=== PATIENT | male | born 1955 | race Caucasian/White ===

== ENCOUNTER 2019-12-25 11:07 | Outpatient (CLI) | payer OTHER, SELFPAY ==
--- NOTE | 2019-12-25 11:10 | ECG_ITS ---
Measurements Intervals [place] Rate: 53 P: 31 ND: 189 QRS: 2 QRSD: 106 T: 7 QT: 395 QTc: 373 Interpretive Statements SINUS BRADYCARDIA VOLTAGE CRITERIA FOR LVH BORDERLINE ECG Electronically Signed On 12-25-2019 12:15:54 SEARCH STRATEGIST by Navin Orozco D.O.
== END 2019-12-25 11:08 | disposition home or self-care (01) ==
LOC: ANHSURGERY 11:10
PROVIDERS: PCP Family Medicine; Visit Provider Urology
DX: I10 Essential (primary) hypertension (principal)
CPT/HCPCS: 93005

== ENCOUNTER 2020-01-03 00:45 | Day surgery (SDC) | payer OTHER, SELFPAY ==
[2019-12-20 11:04] VITALS: BMI 24.4
--- NOTE | 2019-12-31 17:53 | PM.HPGS ---
History of Present Illness History of Present Illness Consent: Risks, benefits, and alternatives have been discussed and questions answered. Patient agrees to proceed with procedure. Chief complaint: Bladder Tumor Narrative: Alex Cortes is a 64 year old male recently underwent evaluation for gross hematuria. CT-abd/pelvis revealed normal upper urinary tract but cystoscopy showed 2 papillary bladder tumors in posterior bladder wall. Review of Systems Constitutional: Constitutional: Denies chills, Denies fatigue, Denies fever(s) and Denies headache(s) Eyes: Eyes: Denies blurry vision ENT: Denies vertigo, Denies dizziness, Denies headache(s) and Denies sore throat Cardiovascular: Cardiovascular: Denies chest pain, Denies syncope, Denies lightheadedness, Denies palpitations, Denies dyspnea and Denies dyspnea on exertion Respiratory: Respiratory: Denies hemoptysis, Denies dyspnea and Denies dyspnea on exertion Gastrointestinal: Gastrointestinal: Denies melena, Denies bloating, Denies hematochezia, Denies change in bowel habits, Denies change in stool character, Denies constipation, Denies diarrhea and Denies vomiting Genitourinary: Genitourinary: Denies hematuria, Denies dysuria, Denies testicular pain, Denies urinary frequency, Denies urinary hesitancy and Denies urinary urgency Integumentary/Breasts: Skin/Breast: Denies pruritus, Denies lesions and Denies rash Neurologic: Denies confusion, Denies vertigo, Denies dizziness, Denies syncope and Denies headache(s) Psychiatric: Psychiatric: Denies anxiety, Denies change in appetite and Denies confusion Endocrine: Endocrine: Denies fatigue and Denies palpitations PMFSH Past Medical History Medical History Colon cancer screening Dyslipidemia Environmental allergies Essential (primary) hypertension Idiopathic chronic gout, unspecified site, without tophus (tophi) Osteoarthritis Family History Family History Mother Patient's mother is Family history of malignant neoplasm of ovary Father Family history of dementia Social History Social History Smoking status: Never smoker Second hand tobacco smoke exposure: No Alcohol intake: current Meds Home Medications and Allergies Home Medications Medication Instructions Recorded Confirmed Type allopurinol 100 mg tablet 150 mg PO DAILY 10/01/19 12/20/19 History metoprolol succinate 100 mg 100 mg PO DAILY 10/01/19 12/20/19 History tablet,extended release 24 hr loratadine [Claritin] 10 mg PO DAILY 11/26/19 12/20/19 History irbesartan 300 mg tablet 300 mg PO DAILY #90 tablet 12/20/19 12/20/19 Rx Allergies Allergy/AdvReac Type Severity Reaction Status Date / Time No Known Allergies Verified 12/20/19 11:05 Exam Const: General: healthy appearing, comfortable, no acute distress and well developed; No confusion Nutritional Appearance: well nourished Orientation/consciousness: patient oriented x3 and No confusion HENMT: Head: normocephalic and atraumatic Ears: external ears normal Face and sinus: normal facial exam Mouth: Yes lip normal Teeth and gingiva: dentition normal Eyes: General: appearance normal, both eyes and all related structures Alignment and Position: alignment normal Eyelids: eyelids normal Cornea: corneas normal Pupils: Equal, round and reactive pupils present EOM: EOMs intact bilaterally Neck: Neck: normal visual inspection, full ROM and no JVD Chest: Chest palpation & inspection: normal inspection of the chest Resp: Effort & Inspection: normal respiratory effort and no use of accessory muscles Auscultation: clear to auscultation bilaterally Cardio: Jugular venous distension: no JVD Rate: regular rate Rhythm: regular rhythm GI: Inspection: normal to inspection GI Palp: No abdominal tendernes
--- NOTE | 2020-01-03 07:22 | WPDHPUPDATE1 ---
History and Physical Update Update Date/Time: 01/03/20 07:22 History and Physical has been reviewed, including an updated exam of the patient. There are NO changes in the patient's condition. Risks, benefits, and alternatives have been discussed and questions answered. Patient agrees to proceed with procedure.
[2020-01-03 12:18] VITALS: BP 146/95; PULSE 63; RESP 14; TEMP 36.3; O2SAT 97; BMI 25.1
--- NOTE | 2020-01-03 12:22 | WPDANESEPPF ---
Anes - Initial Pre Proc Eval Procedure: Operation Date: 01/03/20 13:00 Proposed Procedures p Trans Urethral Resection Bladder Tumor - Wes Goetz MD Date/Time: 01/03/20 12:22 Surgeon: Wes Goetz MD Pre Op Diagnosis: Bladder Tumor Patient Data Age: 64 Gender: M Height: 1.8 m Weight: 79.38 kg Allergies Allergy/AdvReac Type Severity Reaction Status Date / Time No Known Allergies Verified 12/20/19 11:05 Home Medications Medication Instructions Recorded Confirmed Type allopurinol 100 mg tablet 150 mg PO DAILY 10/01/19 12/20/19 History metoprolol succinate 100 mg 100 mg PO DAILY 10/01/19 12/20/19 History tablet,extended release 24 hr loratadine [Claritin] 10 mg PO DAILY 11/26/19 12/20/19 History irbesartan 300 mg tablet 300 mg PO DAILY #90 tablet 12/20/19 12/20/19 Rx ECG: Date of Service: 12/25/19 Procedure(s): CA 12 lead EKG Accession Number(s): [id number] cc: ~ Measurements Intervals [place] Rate: 53 P: 31 [place]: 189 QRS: 2 QRSD: 106 T: 7 QT: 395 QTc: 373 Interpretive Statements SINUS BRADYCARDIA VOLTAGE CRITERIA FOR LVH BORDERLINE ECG Electronically Signed On 12-25-2019 12:15:54 TEAM PRIMARY CARE PHYSICIAN by Navin Orozco D.O. Dictated By: Navin Orozco DO 12/25/19 1133 Patient hx anesthesia problems: none Family hx anesthesia problems: none PMFSH Past Medical History Medical History Colon cancer screening Dyslipidemia Environmental allergies Essential (primary) hypertension Idiopathic chronic gout, unspecified site, without tophus (tophi) Osteoarthritis Family History Family History Mother Patient's mother is Family history of malignant neoplasm of ovary Father Family history of dementia Social History Social History Smoking status: Never smoker Second hand tobacco smoke exposure: No Alcohol intake: current Anes - Eval Final PreProcedure Day of Procedure 02/27/20 12:22 Patient weight: overweight Heart: regular rate and rhythm Lungs: clear to auscultation and normal air movement Airway: Mallampati scale class II Neurological: alert and oriented Last oral intake: >/= 8 hours ASA classification: II Emergent: no Anesthetic plan: proceed Anesthesia type and monitoring: general LMA Informed Consent: The patient's anesthetic plan and its attendant risks and benefits were discussed with the patient/family/POA. Questions were solicited and answers provided to the satisfaction of the patient/family/POA.
[2020-01-03] MEDS: LACTATED RINGERS 1,000 ML 30 ML IV CONT (12:50)
[2020-01-03] MEDS: ceFAZolin 2 GM/D5W 50 ML 2 GM/50 ML BAG IVPB (13:35)
[2020-01-03] MEDS: LIDOCAINE HCL 2% GEL UROJET 10 ML PKG MUCOUS MEM (13:54)
[2020-01-03] MEDS: KETOROLAC 30 MG/ML VIAL (*BKC) IV PUSH (14:00)
[2020-01-03 14:06] VITALS: BP 146/92; PULSE 66; RESP 14; O2SAT 98
--- NOTE | 2020-01-03 14:13 | PM.PROC ---
Procedure Note - Detailed Date of procedure: 01/03/20 Pre-op diagnosis: Bladder Tumor Post-op diagnosis: same Procedure performed: The patient was brought to the operative suite where he is prepped and draped in a routine sterile fashion while in the dorsal lithotomy position. This is done after the uneventful administration of systemic sedation. 2% Xylocaine jelly is introduced intraurethrally and allowed to stand for an appropriate period of time. A 24F resectoscope sheath was placed in the bladder and the bladder is circumferentially inspected carefully. 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 This area is resected in its entirety with an attempt made to include detrusor muscle for pathological evaluation of invasion. The base and periphery of this resected side is cauterized with a loop electrode. The bladder is emptied and the resectoscope was removed. The patient is taken to the recovery room having tolerated this procedure well. Anesthesia: MAC Surgeon: Wes Goetz MD Estimated blood loss (mL): 0 Drains: No Packing: No (Bladder tumor) Pathology: yes (Bladder tumor) Complications: No immediate complications Condition: stable Disposition: PACU
[2020-01-03 14:30] VITALS: BP 140/88; PULSE 68
[2020-01-03 14:45] VITALS: BP 144/75; PULSE 72
== END 2020-01-03 14:50 | disposition home or self-care (01) ==
PROVIDERS: PCP Family Medicine; Visit Provider Urology
PROC: 0TBB8ZZ Excision of Bladder, Via Natural or Artificial Opening Endoscopic (ICD-10-PCS; CPT 52235; principal; 2020-01-03 13:00)
DX: C67.4 Malignant neoplasm of posterior wall of bladder (principal); I10 Essential (primary) hypertension; E78.5 Hyperlipidemia, unspecified; M1A.00X0 Idiopathic chronic gout, unspecified site, without tophus (tophi); M19.90 Unspecified osteoarthritis, unspecified site
CPT/HCPCS: 52235; 88305; 88307; A9270; J0690; J1100; J1885; J2250; J2405; J2704; J3010; J7120

== ENCOUNTER 2020-01-04 04:06 | Observation (INO) | payer OTHER, SELFPAY ==
[2020-01-04 04:10] VITALS: BP 164/76; PULSE 78; RESP 16; TEMP 36.6; O2SAT 100
--- NOTE | 2020-01-04 04:28 | ED.MALEGU ---
HPI - Male Genitourinary General Chief complaint: Urogenital-Male Stated complaint: cant urinate Time Seen by Provider: 01/04/20 04:20 Source: patient Mode of arrival: ambulatory Limitations: no limitations History of Present Illness HPI Narrative: Patient is a 64-year-old male who presents to the emergency department with complaint of hematuria and unable to urinate. Patient underwent transurethral resection of 3 bladder tumors yesterday. Patient states postoperatively he was able to urinate without difficulty. Patient reports yesterday evening developing hematuria and was passing some clots. Patient states he woke up this morning to urinate and was unable to urinate. Patient reports significant discomfort in the area of the bladder. Patient states he is otherwise been doing well postoperatively. Complaint: other (Hematuria, unable to urinate) Duration: constant Location: abdomen (bladder) Severity scale (1-10): 6 Relieving factors: none Exacerbating factors: none Context: recent surgery Associated symptoms: Reports urinary retention and blood in urine Related Data Home Medications Medication Instructions Recorded Confirmed allopurinol 100 mg tablet 150 mg PO DAILY 10/01/19 01/03/20 metoprolol succinate 100 mg 100 mg PO DAILY 10/01/19 01/03/20 tablet,extended release 24 hr loratadine [Claritin] 10 mg PO DAILY 11/26/19 01/03/20 Allergies Allergy/AdvReac Type Severity Reaction Status Date / Time No Known Allergies Verified 01/04/20 05:25 Review of Systems Review of Systems: All systems reviewed & are unremarkable except as noted in HPI and below PMFSH Past Medical History Medical History (Updated 01/04/20 @ 06:14 by Riri Jones MD) Colon cancer screening Dyslipidemia Environmental allergies Essential (primary) hypertension Idiopathic chronic gout, unspecified site, without tophus (tophi) Osteoarthritis Surgical History Surgical History History of chest tube placement History of colonoscopy Social History Social History Smoking status: Never smoker Second hand tobacco smoke exposure: No Alcohol intake: current Gender identity (if verbalized by the patient): Male Exam Const: General: cooperative, no acute distress and alert Nutritional Appearance: well nourished Orientation/consciousness: patient oriented x3 Limitations: no limitations HENMT: Mouth: Yes lip normal and Yes moist mucous membranes Resp: Effort & Inspection: normal respiratory effort Auscultation: clear to auscultation bilaterally Cardio: Rate: regular rate Rhythm: regular rhythm GI: GI Palp: Yes Soft to palpation and Yes Tenderness to palpation present (GI) (Suprapubic) Auscultation: normal bowel sounds : General: Yes Bladder palpation abnormal distended and tender Skin: General skin exam: normal color Neuro: General: patient oriented x3 Cognition (Neuro): normal cognition Speech: normal speech Extrem: General: normal to inspection, full ROM and no clubbing, cyanosis or edema Psych: Mental Status: mental status grossly normal Affect: normal affect Attitude: cooperative Course Course Emergency Course: Patient presents with urinary retention after having had hematuria with clots last night status post bladder tumor resection yesterday. Three-way Srivastava catheter placed and CBI initiated. Patient with grossly bloody urine present that is still red in color with CBI. Patient will be admitted for further CBI and urology evaluation. Consultations Consultation #1: Case discussed with Dr. Laguna, urologist on-call for Dr. Goetz, who recommended admission to urology service for further care. Date: 01/04/20 Time: 06:05 Vital Signs Vital signs: Vital Signs Temperature 97.8 F 01/04/20 04:10 Pulse Rate 78 01/04/20 04:10 Respiratory Rate 16 01/04/20 04:10 Blood Pressure 164/
[2020-01-04 04:47] LABS: Basophils Percent Auto 0.3 % (0.2-1.2); Eosinophils Percent Auto 0.3 % (0-4.4); Hematocrit 38.7 % (42.0-52.0); Hemoglobin 13.4 g/dL (14.0-18.0); Immature Granulocyte Absolute 0.02 K/mm3 (0.00-0.031); Immature Granulocyte Percent A 0.3 % (0-0.5); Lymphocytes Absolute Auto 0.69 K/mm3 (0.9-3.2); Lymphocytes Percent Auto 10.7 % (18.3-44.2); Mean Corpuscular HGB Conc 34.6 g/dl (32-36); Mean Corpuscular Hemoglobin 30.6 pg (26-34); Mean Corpuscular Volume 88.4 fl (80-100); Mean Platelet Volume 9.4 fl (7.4-10.4); Monocytes Absolute Auto 0.6 K/mm3 (0.1-0.6); Neutrophils Absolute Auto 5.1 K/mm3 (1.3-6.7); Neutrophils Percent Auto 79.4 % (45.5-73.1); Platelet Count Result 216 k/mm3 (150-375); Red Blood Count 4.38 M/mm3 (4.6-6.20); White Blood Count 6.5 K/mm3 (4.5-10.0)
[2020-01-04 04:59] LABS: Partial Thromboplastin Time 32.3 SECONDS (22.3-36.8); Prothrombin Time 13.3 Seconds (11.1-14.7)
[2020-01-04 05:00] LABS: Alanine Aminotransferase 14 U/L (4-50); Albumin Level 4.7 g/dL (3.5-5.1); Alkaline Phosphatase 70 U/L (38-126); Aspartate Amino Transferase 28 U/L (17-59); Bilirubin,Total 0.7 mg/dL (0.2-1.3); Blood Urea Nitrogen 19 mg/dL (9-20); Calcium 9.9 mg/dL (8.4-10.2); Carbon Dioxide 22 mmol/L (22-30); Chloride 94 mmol/L (98-107); Estimated Glomerular Filt Rate > 60; Glucose 113 mg/dL (75-110); Potassium 4.7 mmol/L (3.4-5.0); Sodium 131 mmol/L (137-145)
[2020-01-04] MEDS: LIDOCAINE HCL 2% GEL UROJET 10 ML PKG (05:24)
--- NOTE | 2020-01-04 07:33 | PC.NURSE ---
Perres at bedside.
--- NOTE | 2020-01-04 07:53 | PC.NURSE ---
This patient, Alex Cortes, was admitted to 3 Med Surg Room 326-01. Patient/family oriented to hospital policies and general routines including ID bracelet, bed and alarms, visiting hours, pain management, procedures, bathroom and other care routines, personal items, smoking policy, room service/diet, and visiting hours. Valuables list has been completed. Information on how to activate the Rapid Response Team has been discussed. Patient/Family are encouraged to report perceived risks to care and to ask questions if they do not understand what they are told or what they should do.
--- NOTE | 2020-01-04 07:54 | PM.IMHP ---
H&P: HPI History of Present Illness Chief complaint: gross hematuria/urinary obstruction Narrative: Alex Cortes is a 64 year old male s/p first bladder tumor resection yesterday who developed scant gross, painless hematuria followed by clot retention around 0330. He denies fever/chills, significant abdominal pain, n/v. Hematuria cleared promptly with 3-way Srivastava placement. Review of Systems Constitutional: Constitutional: Denies chills, Denies fatigue, Denies fever(s) and Denies headache(s) Eyes: Eyes: Denies blurry vision ENT: Denies vertigo, Denies dizziness, Denies headache(s) and Denies sore throat Cardiovascular: Cardiovascular: Denies chest pain, Denies syncope, Denies lightheadedness, Denies palpitations, Denies dyspnea and Denies dyspnea on exertion Respiratory: Respiratory: Denies hemoptysis, Denies dyspnea and Denies dyspnea on exertion Gastrointestinal: Gastrointestinal: Denies melena, Denies bloating, Denies hematochezia, Denies change in bowel habits, Denies change in stool character, Denies constipation, Denies diarrhea and Denies vomiting Genitourinary: Genitourinary: Reports hematuria, Denies dysuria, Denies testicular pain, Denies urinary frequency, Denies urinary hesitancy and Denies urinary urgency Integumentary/Breasts: Skin/Breast: Denies pruritus, Denies lesions and Denies rash Neurologic: Denies confusion, Denies vertigo, Denies dizziness, Denies syncope and Denies headache(s) Psychiatric: Psychiatric: Denies anxiety, Denies change in appetite and Denies confusion Endocrine: Endocrine: Denies fatigue and Denies palpitations PMFSH Past Medical History Medical History Colon cancer screening Dyslipidemia Environmental allergies Essential (primary) hypertension Idiopathic chronic gout, unspecified site, without tophus (tophi) Osteoarthritis Surgical History Surgical History History of chest tube placement History of colonoscopy Social History Social History Smoking status: Never smoker Second hand tobacco smoke exposure: No Alcohol intake: current Gender identity (if verbalized by the patient): Male Meds Home Medications and Allergies Home Medications Medication Instructions Recorded Confirmed Type allopurinol 100 mg tablet 150 mg PO DAILY 10/01/19 01/03/20 History metoprolol succinate 100 mg 100 mg PO DAILY 10/01/19 01/03/20 History tablet,extended release 24 hr loratadine [Claritin] 10 mg PO DAILY 11/26/19 01/03/20 History irbesartan 300 mg tablet 300 mg PO DAILY #90 tablet 12/20/19 01/03/20 Rx hydrocodone-acetaminophen 1 - 2 tablet PO Q6H PRN #20 tablet 01/03/20 Rx levofloxacin [Levaquin] 500 mg PO DAILY #3 tablet 01/03/20 Rx Allergies Allergy/AdvReac Type Severity Reaction Status Date / Time No Known Allergies Verified 01/04/20 05:25 Vital Signs Vital Signs - 24 hr 01/04/20 04:10 Temperature 97.8 F Pulse Rate 78 Respiratory Rate 16 Blood Pressure 164/76 H Pulse Oximetry 100 Exam Const: General: healthy appearing, comfortable, no acute distress and well developed; No confusion Nutritional Appearance: well nourished Orientation/consciousness: patient oriented x3 and No confusion HENMT: Head: normocephalic and atraumatic Ears: external ears normal Face and sinus: normal facial exam Mouth: Yes lip normal Teeth and gingiva: dentition normal Eyes: General: appearance normal, both eyes and all related structures Alignment and Position: alignment normal Eyelids: eyelids normal Cornea: corneas normal Pupils: Equal, round and reactive pupils present EOM: EOMs intact bilaterally Neck: Neck: normal visual inspection, full ROM and no JVD Chest: Chest palpation & inspection: normal inspection of the chest Resp: Effort & Inspection: normal respiratory effort and no use of acces
[2020-01-04 08:00] VITALS: BP 154/91; PULSE 57; RESP 18; TEMP 37.1; O2SAT 99; BMI 24.5
[2020-01-04 08:01] VITALS: BMI 24.5
[2020-01-04] MEDS: HYOSCYAMINE SULFATE 0.125 MG TABLET SUBLINGUAL ×2 (11:04→15:41)
[2020-01-04 14:00] VITALS: BP 167/84; PULSE 51; RESP 18; TEMP 36.6; O2SAT 100
[2020-01-04 20:00] VITALS: PULSE 51; RESP 18; O2SAT 100
[2020-01-04 21:45] VITALS: BP 135/73; PULSE 52; RESP 16; TEMP 36.8; O2SAT 99
[2020-01-05] MEDS: HYOSCYAMINE SULFATE 0.125 MG TABLET SUBLINGUAL ×3 (00:05→08:47)
--- NOTE | 2020-01-05 00:22 | PC.NURSE ---
CBI clamped off as ordered.
[2020-01-05 06:00] VITALS: BP 144/76; PULSE 51; RESP 18; TEMP 37.1; O2SAT 96
--- NOTE | 2020-01-05 12:30 | PC.NURSE ---
Patient discharged @1150 via wheel chair and POV. Patient IV line discontinued, patient discharged home via . Discharge instructions read and patient verbalized understanding.
== END 2020-01-05 11:50 | disposition home or self-care (01) ==
LOC: ANHED 06:14 → ANH3MEDSUR 06:43
PROVIDERS: Admitting Provider Urology; Emergency Provider Emergency Medicine; PCP Family Medicine; Visit Provider Urology
DX: R31.0 Gross hematuria (principal); R33.8 Other retention of urine; Z98.890 Other specified postprocedural states; E78.5 Hyperlipidemia, unspecified; I10 Essential (primary) hypertension; M1A.00X0 Idiopathic chronic gout, unspecified site, without tophus (tophi); M19.90 Unspecified osteoarthritis, unspecified site; Z79.899 Other long term (current) drug therapy
CPT/HCPCS: 36415; 51700; 80053; 85025; 85610; 85730; 99285; A9270; G0378

== ENCOUNTER 2020-11-17 00:50 | Outpatient (CLI) | payer MEDICARE, SELFPAY ==
[2020-11-17 19:06] LABS: SARS-CoV-2 RNA PCR Negative
== END 2020-11-17 00:51 | disposition home or self-care (01) ==
LOC: ANHCOVIDDT 00:50
PROVIDERS: PCP Family Medicine; Visit Provider Surgery
DX: Z01.812 Encounter for preprocedural laboratory examination (principal); Z20.822 Contact with and (suspected) exposure to COVID-19
CPT/HCPCS: C9803; U0003

== ENCOUNTER 2020-11-20 00:58 | Day surgery (SDC) | payer MEDICARE, SELFPAY ==
[2020-11-12 09:39] VITALS: BMI 24.3
--- NOTE | 2020-11-20 08:19 | PM.SD ---
Same Day Admit/Disch: HPI History of Present Illness Chief complaint: Left Inguinal Hernia Narrative: Alex Cortes is a 65 year old male Who has been complaining of left groin pain for about 2 or 3 months. Laying down improves the pain. He was seen in the office and exam showed a left inguinal hernia. Interestingly, he had a CT scan which showed a right inguinal hernia containing bladder and small intestine. The left inguinal hernia contained fat. His exam in the office showed only a left inguinal hernia. He is taken to surgery now for left inguinal hernia repair under anesthesia. Patient also has history urinary bladder cancer and had a TURBT December 2019. [facility] Past Medical History Medical History Cancer of posterior wall of urinary bladder Dyslipidemia Environmental allergies Essential (primary) hypertension Idiopathic chronic gout, unspecified site, without tophus (tophi) Osteoarthritis Surgical History Surgical History History of chest tube placement (~1973) 1973 - for pneumothorax Status post surgical removal and fulguration of bladder neoplasm (~12/2019) 12/27 - TURBT Family History Family History Mother Patient's mother is Family history of malignant neoplasm of ovary Father Family history of dementia Social History Social History Smoking status: Never smoker Second hand tobacco smoke exposure: No Alcohol intake: current Drinks per week: 14 Alcohol use details: 2 BEERS/DAY Substance use: never Living arrangements: with family Additional living arrangements comments: Gender identity (if verbalized by the patient): Male Spiritual care concerns: No Agree to blood products: Yes Same Day Admit/Disch: Med Pre-admit Medications Home Medications Medication Instructions Recorded Confirmed Type loratadine [Claritin] 10 mg PO DAILY 11/26/19 11/20/20 History indomethacin 75 mg PO BID PRN 11/12/20 11/20/20 History triamcinolone acetonide 1 applic TOPICAL BID PRN 11/12/20 11/12/20 History allopurinol 100 mg tablet 100 mg PO DAILY #90 tablet 11/17/20 11/20/20 Rx irbesartan 300 mg tablet 300 mg PO QAM #90 tablet 11/17/20 11/20/20 Rx metoprolol succinate 100 mg 100 mg PO QAM #90 tablet 11/17/20 11/20/20 Rx tablet,extended release 24 hr hydrocodone-acetaminophen 1 - 2 tablet PO Q6H PRN #15 tablet 11/20/20 Rx Exam Const: General: comfortable, no acute distress, alert and awake HENMT: Head: normocephalic and atraumatic Mouth: Yes Normal oral and palatal mucosa present Eyes: Conjunctivae: conjunctivae normal Pupils: Equal, round and reactive pupils present EOM: EOMs intact bilaterally Neck: Neck: normal visual inspection, no lymphadenopathy and nontender Resp: Effort & Inspection: normal respiratory effort Auscultation: clear to auscultation bilaterally Cardio: Rate: regular rate Rhythm: regular rhythm Heart sounds: no gallops, no murmurs and no rubs GI: Inspection: non-distended GI Palp: Yes Soft to palpation, No Tenderness to palpation present (GI), No Hepatomegaly present and No Splenomegaly present : Male General Exam: Yes hernia ( Left inguinal hernia noted, reducible. No right inguinal hernia noted) Penis: Yes normal penis Scrotum: scrotum normal Testes: Testes normal Skin: Lesions: no lesions Rashes: no rashes Neuro: General: no focal motor deficits and CN's II-XI intact bilaterally Cranial nerves: Yes Equal, round and reactive pupils present, Yes Bilaterally intact EOM present, Yes facial symmetry and Yes Midline tongue present Speech: normal speech Motor exam (neuro): 5/5 motor strength present throughout and Motor abnormalities not present Extrem: General: no clubbing, cyanosis or edema and edema Psych: Af
--- NOTE | 2020-11-20 08:22 | WPDHPUPDATE1 ---
History and Physical Update Update Date/Time: 11/20/20 08:22 History and Physical has been reviewed, including an updated exam of the patient. There are NO changes in the patient's condition. Risks, benefits, and alternatives have been discussed and questions answered. Patient agrees to proceed with procedure.
[2020-11-20] MEDS: ACETAMINOPHEN 500 MG TABLET 1000 MG PO (09:28)
[2020-11-20] MEDS: LACTATED RINGERS 1,000 ML 30 ML IV CONT (09:30)
[2020-11-20] MEDS: KETOROLAC 15 MG/ML VIAL (*BKC) IV PUSH (09:35)
[2020-11-20 09:41] VITALS: BP 157/95; PULSE 56; RESP 16; TEMP 36.5; O2SAT 99
--- NOTE | 2020-11-20 10:33 | WPDANESEPPF ---
Anes - Initial Pre Proc Eval Procedure: Operation Date: 11/20/20 10:30 Proposed Procedures p Repair Left Inguinal Hernia - Bon Bradshaw MD Date/Time: 11/20/20 10:33 Surgeon: Bon Bradshaw MD Pre Op Diagnosis: Left Inguinal Hernia Patient Data Age: 65 Gender: M Height: 5 ft 11 in Weight: 80.3 kg Last Vital Signs Temp 36.5 C 11/20/20 09:41 Pulse 56 L 11/20/20 09:41 Resp 16 11/20/20 09:41 BP 157/95 H 11/20/20 09:41 Pulse Ox 99 11/20/20 09:41 Allergies Allergy/AdvReac Type Severity Reaction Status Date / Time No Known Allergies Allergy Verified 11/20/20 08:44 Home Medications Medication Instructions Recorded Confirmed Type loratadine [Claritin] 10 mg PO DAILY 11/26/19 11/20/20 History indomethacin 75 mg PO BID PRN 11/12/20 11/20/20 History triamcinolone acetonide 1 applic TOPICAL BID PRN 11/12/20 11/12/20 History allopurinol 100 mg tablet 100 mg PO DAILY #90 tablet 11/17/20 11/20/20 Rx irbesartan 300 mg tablet 300 mg PO QAM #90 tablet 11/17/20 11/20/20 Rx metoprolol succinate 100 mg 100 mg PO QAM #90 tablet 11/17/20 11/20/20 Rx tablet,extended release 24 hr Patient hx anesthesia problems: none Family hx anesthesia problems: none PMFSH Past Medical History Medical History Cancer of posterior wall of urinary bladder Dyslipidemia Environmental allergies Essential (primary) hypertension Idiopathic chronic gout, unspecified site, without tophus (tophi) Osteoarthritis Surgical History Surgical History History of chest tube placement (~1973) 1973 - for pneumothorax Status post surgical removal and fulguration of bladder neoplasm (~12/2019) 12/27 - TURBT Family History Family History Mother Patient's mother is Family history of malignant neoplasm of ovary Father Family history of dementia Social History Social History Smoking status: Never smoker Second hand tobacco smoke exposure: No Alcohol intake: current Drinks per week: 14 Alcohol use details: 2 BEERS/DAY Substance use: never Living arrangements: with family Additional living arrangements comments: Gender identity (if verbalized by the patient): Male Spiritual care concerns: No Agree to blood products: Yes Anes - Eval Final PreProcedure Day of Procedure 11/20/20 10:33 Patient weight: normal Heart: regular rate and rhythm Lungs: clear to auscultation Airway: Mallampati scale class II Neurological: alert and oriented Last oral intake: >/= 8 hours ASA classification: II Emergent: no Anesthetic plan: proceed Anesthesia type and monitoring: general GIVS and standard monitoring Informed Consent: The patient's anesthetic plan and its attendant risks and benefits were discussed with the patient/family/POA. Questions were solicited and answers provided to the satisfaction of the patient/family/POA.
--- NOTE | 2020-11-20 10:59 | P.OP_ITS ---
Procedure Note - Detailed Date of procedure: 11/20/20 Pre-op diagnosis: Left Inguinal Hernia Left inguinal hernia Post-op diagnosis: other (Indirect hernia) Procedure performed: Repair of left inguinal hernia with 6 cm Parietex hernia mesh system Description of procedure: The patient was taken to surgery and IV sedation was administered. The left groin and genitalia were prepped and draped. Proposed incision was marked on the skin. Local was infiltrated into the skin and the deeper subcutaneous tissues. Incision was made and deepened through the subcutaneous. Crossing veins were cauterized and divided. Dissection was carried through Michael's fascia down to the external oblique aponeurosis. The aponeurosis was exposed as was the external ring. Additional local anesthesia was infiltrated deep to the aponeurosis in the area of the spermatic cord and inguinal canal contents. The aponeurosis was opened laterally and extended medially through the external ring. The leaves of the aponeurosis were dissect ed free from the spermatic cord. The ileoinguinal nerve was carefully preserved throughout the dissection and was left attached to the spermatic cord. The cord was then mobilized medially on a [place] drain. The cord was dissected back to the internal ring. Dissection was then carried out in the anteromedial spermatic cord. The hernia sac was found and dissected free. The sac was opened so that I could place a finger within the hernia sac and facilitate this dissection. This opening was then closed with a running 3 0 Vicryl suture. The sac was then dissected back to a high dissection. It was dunked into the retroperitoneum. A 6 centimeter Parietex cherokee was chosen. It was folded to form a plug. It was placed in the defect. The edges were sutured to the transversalis fascia with interrupted 3 0 Vicryl suture. The hernia defect was then partially closed with some additional 3 0 Vicryl suture. Patch was then cut to the appropriate size and placed over the inguinal canal floor. The lateral leaves were passed beyond the cord. The cord and ileoinguinal nerve were then laid over the patch. The external oblique aponeurosis was closed with interrupted 3 0 Vicryl suture. Michael's fascia was closed with interrupted 3 0 Vicryl suture. The subcutaneous was closed with interrupted 4 0 Vicryl suture. Four 0 Vicryl subcuticular skin sutures were placed. The skin was closed finally with a running 4 0 Monocryl skin suture. The wound was dressed with Exofin surgical adhesive. The patient was awakened and taken to recovery in good condition. Sponge and needle counts were correct x2. Anesthesia: MAC and local (0.5% Marcaine with Exparel) Surgeon: Bon Bradshaw MD Pony Edger: Lester JOSEPH, Grace JOSEPH Estimated blood loss (mL): 5 Drains: No Packing: No Pathology: none sent Complications: None Condition: stable Disposition: PACU Findings: Indirect inguinal hernia. No sliding hernia was noted.
[2020-11-20] MEDS: ceFAZolin 2 GM/D5W 50 ML 2 GM/50 ML BAG IVPB (11:06)
[2020-11-20] MEDS: BUPIVACAINE HCL 0.5% PF 30 ML VIAL INFILTRATE (11:38)
[2020-11-20 12:31] VITALS: BP 147/77; PULSE 61; RESP 16; O2SAT 99
[2020-11-20 13:01] VITALS: BP 155/80; PULSE 51; RESP 16
[2020-11-20 13:31] VITALS: BP 152/78; PULSE 53; RESP 16
[2020-11-20 13:45] VITALS: BP 155/83; PULSE 54; RESP 16
--- NOTE | 2020-11-20 17:14 | SUR.PHASEII ---
PT URINATED WITHOUT INCIDENT. [id number]
== END 2020-11-20 14:00 | disposition home or self-care (01) ==
PROVIDERS: PCP Family Medicine; Visit Provider Surgery
PROC: (CPT 49505; principal; 2020-11-20 10:30)
DX: K40.90 Unilateral inguinal hernia, without obstruction or gangrene, not specified as recurrent (principal); I10 Essential (primary) hypertension; E78.5 Hyperlipidemia, unspecified; M10.00 Idiopathic gout, unspecified site; M19.90 Unspecified osteoarthritis, unspecified site; Z85.51 Personal history of malignant neoplasm of bladder
CPT/HCPCS: 49505; A9270; C1781; C9290; C9803; J0690; J1100; J1885; J2250; J2405; J2704; J3010; J7120; U0003

== ENCOUNTER 2023-03-10 10:05 | Outpatient (CLI) | payer MEDICARE, SELFPAY ==
[2023-03-10 13:19] LABS: Alanine Aminotransferase 16 U/L (6-50); Albumin Level 4.6 g/dL (3.5-5.1); Alkaline Phosphatase 67 U/L (38-126); Anion Gap 6 mmol/L (8-16); Aspartate Amino Transferase 39 U/L (17-59); Bilirubin,Total 0.9 mg/dL (0.2-1.3); Blood Urea Nitrogen 18 mg/dL (9-20); Calcium 9.2 mg/dL (8.4-10.2); Carbon Dioxide 29 mmol/L (22-30); Chloride 95 mmol/L (98-107); Estimated Glomerular Filt Rate > 60; Glucose 90 mg/dL (65-110); Potassium 4.5 mmol/L (3.4-5.0); Sodium 130 mmol/L (137-145)
== END 2023-03-10 10:06 | disposition home or self-care (01) ==
LOC: ANHGOSHLAB 10:06
PROVIDERS: PCP Family Medicine; Visit Provider Family Medicine
DX: E78.5 Hyperlipidemia, unspecified (principal); I10 Essential (primary) hypertension; Z79.899 Other long term (current) drug therapy
CPT/HCPCS: 36415; 80053

== ENCOUNTER → 2023-03-10 10:22 | Outpatient (CLI) | payer MEDICARE, SELFPAY ==
--- NOTE | ~2023-03-10 | XR_ITS ---
Left Knee Technique: AP, lateral, and sunrise views were obtained. Clinical History: Pain Findings: No fracture or dislocation is seen. There is moderate degenerative change of the medial com partment with medial joint line spurring and probable mild medial compartment narrowing. Minimal spur ring of the patella and lateral joint line noted. Soft tissues are unremarkable. No joint effusion is seen. Impression: Degenerative changes, as above, worst in the medial compartment. Reviewed, dictated and finalized at location M. Impression: Degenerative changes, as above, worst in the medial compartment.
--- NOTE | ~2023-03-10 | XR_ITS ---
Right Knee Technique: AP, lateral, and sunrise views were obtained. Clinical History: Pain Findings: No fracture or dislocation is seen. There is medial compartment narrowing with medial joint line spurring. There is minimal patellar spurring. Soft tissues are unremarkable. No joint effusion is seen. Impression: Moderate medial compartment degenerative change. Minimal patellar spurring. Reviewed, dictated and finalized at location . Impression: Moderate medial compartment degenerative change. Minimal patellar spurring.
== END ==
PROVIDERS: PCP Family Medicine; Visit Provider Family Medicine
DX: G89.29 Other chronic pain (principal); M25.561 Pain in right knee; M25.562 Pain in left knee
CPT/HCPCS: 73562

== ENCOUNTER 2023-09-15 10:55 | Outpatient (CLI) | payer MEDICARE, SELFPAY ==
[2023-09-15 12:02] LABS: Basophils Absolute Auto 0.1 K/mm3 (0.0-0.1); Basophils Percent Auto 0.9 % (0.2-1.2); Eosinophils Absolute Auto 0.2 K/mm3 (0-0.3); Eosinophils Percent Auto 2.8 % (0-4.4); Hematocrit 40.7 % (42.0-52.0); Hemoglobin 13.8 g/dL (14.0-18.0); Immature Granulocyte Absolute 0.03 K/mm3 (0.00-0.031); Immature Granulocyte Percent A 0.6 % (0-0.5); Lymphocytes Absolute Auto 1.45 K/mm3 (0.9-3.2); Lymphocytes Percent Auto 27.3 % (18.3-44.2); Mean Corpuscular HGB Conc 33.9 g/dl (32-36); Mean Corpuscular Hemoglobin 31.4 pg (26-34); Mean Corpuscular Volume 92.5 fl (80-100); Mean Platelet Volume 9.2 fl (7.4-10.4); Monocytes Absolute Auto 0.6 K/mm3 (0.1-0.6); Monocytes Percent Auto 11.1 % (2.6-8.5); Neutrophils Percent Auto 57.3 % (45.5-73.1); Platelet Count Result 243 k/mm3 (150-375); White Blood Count 5.3 K/mm3 (4.5-10.0)
[2023-09-15 12:33] LABS: Alanine Aminotransferase 14 U/L (6-50); Albumin Level 4.5 g/dL (3.5-5.1); Alkaline Phosphatase 70 U/L (38-126); Anion Gap 6 mmol/L (8-16); Aspartate Amino Transferase 34 U/L (17-59); Bilirubin,Total 0.8 mg/dL (0.2-1.3); Blood Urea Nitrogen 19 mg/dL (9-20); Calcium 9.9 mg/dL (8.4-10.2); Carbon Dioxide 30 mmol/L (22-30); Chloride 94 mmol/L (98-107); Cholesterol 179 mg/dL (0-200); Estimated Glomerular Filt Rate > 60; Glucose 97 mg/dL (65-110); HDL Direct 69 mg/dL; Potassium 4.8 mmol/L (3.4-5.0); Sodium 130 mmol/L (137-145); Triglycerides 67 mg/dL (<150)
[2023-09-15 12:35] LABS: Vitamin D 25 Hydroxy 33.7 ng/mL
[2023-09-15 12:53] LABS: LDL Cholesterol Direct 88 mg/dL
[2023-09-15 13:31] LABS: Prostate Specific Antigen 1.5 ng/mL (< OR = 4.0)
== END 2023-09-15 10:56 | disposition home or self-care (01) ==
LOC: ANHGOSHLAB 10:57
PROVIDERS: PCP Family Medicine; Visit Provider Family Medicine
DX: Z00.00 Encounter for general adult medical examination without abnormal findings (principal); E53.8 Deficiency of other specified B group vitamins; I10 Essential (primary) hypertension; E55.9 Vitamin D deficiency, unspecified; E78.5 Hyperlipidemia, unspecified; Z12.5 Encounter for screening for malignant neoplasm of prostate
CPT/HCPCS: 36415; 80053; 80061; 82306; 82607; 84153; 84443; 85025; G0103

== ENCOUNTER 2024-06-20 14:08 | Outpatient (CLI) | payer MEDICARE, SELFPAY ==
[2024-06-20 19:00] LABS: Basophils Absolute Auto 0.1 K/mm3 (0.0-0.1); Basophils Percent Auto 0.8 % (0.2-1.2); Eosinophils Absolute Auto 0.1 K/mm3 (0-0.3); Eosinophils Percent Auto 2.2 % (0-4.4); Hematocrit 40.5 % (42.0-52.0); Hemoglobin 13.5 g/dL (14.0-18.0); Immature Granulocyte Absolute 0.03 K/mm3 (0.00-0.031); Immature Granulocyte Percent A 0.5 % (0-0.5); Lymphocytes Absolute Auto 1.29 K/mm3 (0.9-3.2); Lymphocytes Percent Auto 21.7 % (18.3-44.2); Mean Corpuscular HGB Conc 33.3 g/dl (32-36); Mean Corpuscular Volume 93.1 fl (80-100); Mean Platelet Volume 9.7 fl (7.4-10.4); Monocytes Absolute Auto 0.7 K/mm3 (0.1-0.6); Monocytes Percent Auto 12.1 % (2.6-8.5); Neutrophils Absolute Auto 3.7 K/mm3 (1.3-6.7); Neutrophils Percent Auto 62.7 % (45.5-73.1); Platelet Count Result 260 k/mm3 (150-375); Red Blood Count 4.35 M/mm3 (4.6-6.20); Red Cell Distribution Width 12.1 % (11.5-14.5); White Blood Count 5.9 K/mm3 (4.5-10.0)
[2024-06-20 19:32] LABS: Add Urine Microscopic? NO; Appearance Urine Clear (Clear); Bilirubin Urine Negative (Negative); Blood Urine Negative (Negative); Color Urine Yellow (Yellow); Glucose Urine UA Negative (Negative); Ketones Urine Negative (Negative); Leukocyte Esterase Ur Negative LEU/UL (Negative); Nitrate Urine Negative (Negative); Protein Urine Negative (Negative); Specific Grav Ur 1.019 (1.001-1.035); Urobilinogen Urine 0.2 mg/dL (<2.0); pH Urine 6.5 (5.0-9.0)
[2024-06-20 20:51] LABS: Alanine Aminotransferase 12 U/L (6-50); Albumin Level 4.4 g/dL (3.5-5.1); Alkaline Phosphatase 68 U/L (38-126); Anion Gap 8 mmol/L (4-12); Aspartate Amino Transferase 39 U/L (17-59); Bilirubin,Total 0.7 mg/dL (0.2-1.3); Blood Urea Nitrogen 21 mg/dL (9-20); Calcium 9.7 mg/dL (8.4-10.2); Carbon Dioxide 29 mmol/L (22-30); Chloride 93 mmol/L (98-107); Estimated Glomerular Filt Rate > 60; Glucose 92 mg/dL (65-110); Potassium 4.6 mmol/L (3.4-5.0); Sodium 130 mmol/L (137-145)
== END 2024-06-20 14:09 | disposition home or self-care (01) ==
LOC: ANHGOSHLAB 14:09
PROVIDERS: PCP Family Medicine; Visit Provider Family Medicine
DX: M1A.00X0 Idiopathic chronic gout, unspecified site, without tophus (tophi) (principal); E11.9 Type 2 diabetes mellitus without complications; Z01.818 Encounter for other preprocedural examination; I10 Essential (primary) hypertension; Z79.899 Other long term (current) drug therapy
CPT/HCPCS: 36415; 80053; 81003; 83036; 85025

== ENCOUNTER 2024-06-20 14:21 | Outpatient (CLI) | payer MEDICARE, SELFPAY ==
--- NOTE | ~2024-06-20 | XR_ITS ---
EXAMINATION: XR chest 2V 06/20/2024 14:32 INDICATION: Preop. PROCEDURE: 2 view chest COMPARISON: No prior studies for comparison. FINDINGS: The lungs are clear. The lungs are hyperinflated which is consistent with, but not diagnost ic of chronic obstructive pulmonary disease. The cardiomediastinal silhouette is within normal limits . There are no pleural effusions. There is no pneumothorax suspected. IMPRESSION: 1: NO ACUTE CARDIOPULMONARY DISEASE. Reviewed, dictated and finalized at location B.
== END 2024-06-20 14:22 ==
PROVIDERS: PCP Family Medicine; Visit Provider Orthopaedic Surgery
DX: Z01.818 Encounter for other preprocedural examination (principal)
CPT/HCPCS: 71046

== ENCOUNTER 2024-06-21 10:28 | Outpatient (CLI) | payer MEDICARE, SELFPAY ==
--- NOTE | 2024-06-21 | ECG_ITS ---
Test Date: 2024-06-21 10:54:20 Measurements Intervals [place] Rate: 57 P: 60 DE: 215 QRS: 35 QRSD: 94 T: 39 QT: 400 QTc: 390 Interpretive Statements SINUS BRADYCARDIA WITH FIRST DEGREE AV BLOCK No previous ECG available for comparison Electronically Signed On 06-21-2024 13:37:38 CDT by Kaye Flannery M.D.
== END 2024-06-21 10:29 | disposition home or self-care (01) ==
LOC: ANHCARD 10:32
PROVIDERS: PCP Family Medicine; Visit Provider Orthopaedic Surgery
DX: Z01.818 Encounter for other preprocedural examination (principal); I44.0 Atrioventricular block, first degree
CPT/HCPCS: 93005

== ENCOUNTER 2024-10-24 08:07 | Outpatient (CLI) | payer MEDICARE, SELFPAY ==
[2024-10-24 18:46] LABS: Basophils Absolute Auto 0.1 K/mm3 (0.0-0.1); Basophils Percent Auto 1.1 % (0.2-1.2); Eosinophils Absolute Auto 0.3 K/mm3 (0-0.3); Eosinophils Percent Auto 5.6 % (0-4.4); Hematocrit 40.9 % (42.0-52.0); Hemoglobin 13.4 g/dL (14.0-18.0); Immature Granulocyte Absolute 0.01 K/mm3 (0.00-0.031); Immature Granulocyte Percent A 0.2 % (0-0.5); Lymphocytes Absolute Auto 1.53 K/mm3 (0.9-3.2); Lymphocytes Percent Auto 32.8 % (18.3-44.2); Mean Corpuscular HGB Conc 32.8 g/dl (32-36); Mean Corpuscular Hemoglobin 29.5 pg (26-34); Mean Corpuscular Volume 90.1 fl (80-100); Mean Platelet Volume 9.6 fl (7.4-10.4); Monocytes Absolute Auto 0.7 K/mm3 (0.1-0.6); Monocytes Percent Auto 14.6 % (2.6-8.5); Neutrophils Absolute Auto 2.1 K/mm3 (1.3-6.7); Neutrophils Percent Auto 45.7 % (45.5-73.1); Platelet Count Result 272 k/mm3 (150-375); Red Blood Count 4.54 M/mm3 (4.6-6.20); Red Cell Distribution Width 13.1 % (11.5-14.5); White Blood Count 4.7 K/mm3 (4.5-10.0)
[2024-10-24 18:54] LABS: Add Urine Microscopic? NO; Appearance Urine Clear (Clear); Bilirubin Urine Negative (Negative); Blood Urine Negative (Negative); Color Urine Yellow (Yellow); Glucose Urine UA Negative (Negative); Ketones Urine Negative (Negative); Leukocyte Esterase Ur Negative LEU/UL (Negative); Nitrate Urine Negative (Negative); Protein Urine Negative (Negative); Specific Grav Ur 1.011 (1.001-1.035); Urobilinogen Urine 0.2 mg/dL (<2.0); pH Urine 7.5 (5.0-9.0)
[2024-10-24 19:09] LABS: Alanine Aminotransferase 12 U/L (6-50); Albumin Level 4.3 g/dL (3.5-5.1); Alkaline Phosphatase 68 U/L (38-126); Anion Gap 5 mmol/L (4-12); Aspartate Amino Transferase 38 U/L (17-59); Blood Urea Nitrogen 14 mg/dL (9-20); Calcium 9.8 mg/dL (8.4-10.2); Carbon Dioxide 30 mmol/L (22-30); Chloride 95 mmol/L (98-107); Cholesterol 156 mg/dL (0-200); Estimated Glomerular Filt Rate > 60; Glucose 77 mg/dL (65-110); HDL Direct 73 mg/dL; Potassium 4.4 mmol/L (3.4-5.0); Sodium 130 mmol/L (137-145); Triglycerides 51 mg/dL (<150); Uric Acid 5.8 mg/dL (3.5-8.5)
[2024-10-24 19:19] LABS: LDL Cholesterol Direct 60 mg/dL
[2024-10-24 20:11] LABS: Hemoglobin A1C 5.1 % (<5.7)
[2024-10-24 21:48] LABS: Prostate Specific Antigen 0.9 ng/mL (< OR = 4.0)
== END 2024-10-24 08:08 | disposition home or self-care (01) ==
PROVIDERS: PCP Family Medicine; Visit Provider Family Medicine
DX: Z01.818 Encounter for other preprocedural examination (principal); E78.5 Hyperlipidemia, unspecified; I10 Essential (primary) hypertension; E53.8 Deficiency of other specified B group vitamins; E55.9 Vitamin D deficiency, unspecified; Z12.5 Encounter for screening for malignant neoplasm of prostate; R73.9 Hyperglycemia, unspecified; M10.00 Idiopathic gout, unspecified site
CPT/HCPCS: 36415; 80053; 80061; 81003; 82306; 82607; 83036; 84153; 84443; 84550; 85025; G0103

== ENCOUNTER 2024-10-24 08:34 | Outpatient (CLI) | payer MEDICARE, SELFPAY ==
--- NOTE | ~2024-10-24 | XR_ITS ---
XR chest 2V Ordering provider: Neftaly Alcazar, History: 69 years Male with . PRE OPERATIVE EXAM hx of HTN . Comparison: June 20, 2024 FINDINGS: MEDIASTINUM: The cardiac silhouette is not enlarged. LUNGS: No infiltrates, effusions or pneumothorax. OTHER: No free air under the diaphragm. Degenerative changes. Loss of height is seen in multiple vertebrae in the upper thoracic area most li samantha chronic. IMPRESSION: No acute cardiopulmonary pathology. Reviewed, dictated and finalized at location A. STERED NURSE RENAL
== END 2024-10-24 08:35 | disposition home or self-care (01) ==
LOC: GOSHIMG 08:35
PROVIDERS: PCP Orthopaedic Surgery; Visit Provider Orthopaedic Surgery
DX: Z01.818 Encounter for other preprocedural examination (principal); I44.0 Atrioventricular block, first degree
CPT/HCPCS: 71046

== ENCOUNTER 2024-10-24 11:07 | Outpatient (CLI) | payer MEDICARE, SELFPAY ==
--- NOTE | 2024-10-24 11:27 | ECG_ITS ---
Test Date: 2024-10-24 11:40:43 Measurements Intervals [place] Rate: 48 P: 51 LA: 215 QRS: 11 QRSD: 102 T: 8 QT: 428 QTc: 382 Interpretive Statements SINUS BRADYCARDIA WITH FIRST DEGREE AV BLOCK MODERATE VOLTAGE CRITERIA FOR LVH, CONSIDER NORMAL VARIANT [MEETS CRITERIA IN ONE OF: R(aVL), S(V1), R(V5), R(V5/V6)+S(V1)] Compared to ECG 06/21/2024 10:54:20 No significant changes Electronically Signed On 10-24-2024 14:45:52 RATE EXAMINER by Kaye Flannery M.D.
== END 2024-10-24 11:08 | disposition home or self-care (01) ==
PROVIDERS: PCP Family Medicine; Visit Provider Orthopaedic Surgery
DX: Z01.818 Encounter for other preprocedural examination (principal)
CPT/HCPCS: 93005

== ENCOUNTER 2025-05-29 09:02 | Outpatient (CLI) | payer MEDICARE, SELFPAY ==
--- OUTSIDE RECORDS SUMMARY | 2025-05-29 09:16 | XMS_ITS | Clinical Summary ---
Author Organization [facility] Medical Office Building [address] Address [address] [place] [address] Care Team Providers Care Urgent Care Physician Name Role Phone Francisco Christianson MD Primary Care Provider Neftaly Alcazar MD Unavailable [phone] Allergies No known active allergies Medications allopurinoL (ZYLOPRIM) 100 mg tablet Take 1 tablet (100 mg total) by mouth daily 4 Active amLODIPine (NORVASC) 5 mg tablet Take 1 tablet (5 mg total) by mouth daily 4 Active irbesartan-hydr oCHLOROthiazide (AVALIDE) 300-12.5 mg per tablet Take 1 tablet by mouth daily 4 Active metoprolol XL (TOPROL-XL) 100 mg 24 hr tablet Take 1 tablet (100 mg total) by mouth daily 4 Active vitamin B complex capsule Take 1 capsule by mouth daily Active aspirin 81 mg enteric coated tablet Take 1 tablet (81 mg total) by mouth 2 (two) times a day 84 tablet 5 Active celecoxib (CeleBREX) 200 mg capsuleIndicati ons:Postoperati ve Acute Pain Take 1 capsule (200 mg total) by mouth 2 (two) times a day 84 capsule 5 Active Additional Information Patient not taking.Reported on 01/31/2025 Active Problems Problem Noted Date Diagnosed Date Primary osteoarthritis of right knee 12/03/2024 Primary osteoarthritis of left knee 07/05/2024 Surgical History Surgery Date Site/Laterality Comments HERNIA REPAIR TRANSURETHRAL RESECTION OF BLADDER TUMOR 2019 JOINT REPLACEMENT Left knee Medical History Medical History Date Comments Hypertension Gout Family History Medical History Relation Name Comments No Known Problems Brother No Known Problems Daughter No Known Problems Father No Known Problems Mother No Known Problems Sister No Known Problems Son Relation Name Status Comments Brother Daughter Father Mother Sister Son Social History Tobacco Use Types Packs/Day Years Used Date Smoking Tobacco: Never Smokeless Tobacco: Never Tobacco Cessation:Counseling Given: No AUDIT-C Answer Date Recorded Q1: How often do you have a drink containing alcohol? Never 01/31/2025 Q2: How many drinks containi ng alcohol do you have on a typical day when you are drinking? Patient does not drink Q3: How often do you have si x or more drinks on one occasion? Never 01/31/2025 Personal Safety Answer Date Recorded Have you ever been in or are you currently in a harmful physical or emotional relationship or is someone making you feel afraid or unsafe? 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 Gender Identity Not on file Sexual Orientation Not on file Obstetrics History Last Filed Vital Signs Vital Sign Reading Time Taken Comments Blood Pressure 125/74 01/31/2025 8:31 AM CDT Pulse 76 01/31/2025 8:31 AM CDT Temperature 36.1 C (97 F) 12/12/2024 2:00 PM HORTICULTURAL SERVICES SUPERVISOR Respiratory Rate 18 12/12/2024 2:00 PM HORTICULTURAL SERVICES SUPERVISOR Oxygen Saturation 98% 12/12/2024 2:00 PM HORTICULTURAL SERVICES SUPERVISOR Inhaled Oxygen Concentration - - Weight 83.5 kg (184 lb) 01/31/2025 8:31 AM CDT Height 177.8 cm (5' 10) 12/12/2024 6:22 AM HORTICULTURAL SERVICES SUPERVISOR Body Mass Index 26.4 12/12/2024 6:22 AM HORTICULTURAL SERVICES SUPERVISOR Plan of Treatment Health Maintenance Due Date Last Done Comments Colon Cancer Screening-Colonoscopy 1955 Depression Screening 1955 Fall Risk Assessment 1955 Hepatitis C Screening 1955 Prostate Cancer Screening-PSA 1955 Hepatitis B Screening 1973 Well Visit 65+ 2020 Zoster Vaccine (3 of 3) 05/05/2023 03/10/2023, 09/23 /2015 Covid-19 Vaccine (2023-2 5 season) 2024 08/17/2022, 10/05/2021, 01/22/2021, Additional history exists Influenza Vaccine (#1) 2025 , 08/17/2022, 08/06/2019, Additional history exists DTaP/Tdap/Td Vaccine (3 - Td or Tdap) 07/28/2027 07/28/2017, 08/03/2007 Pneumococcal vaccine 65+ Completed 03/10/2023 Medical Devices Implanted Type Area Oral Surgery Physician Device Identifier Shelf Expiration Date Model / Serial / Lot [employer] Cmpnt Fem 7 Knee Left Post Stab Cementless Attune Porocoat [id number] - [id number] Implanted:Qty: 1 on 07/18/2024 by Neftaly Alcazar MD at [facility] Left: Knee [employer] [id number] 09/06/2033 [id number] / / [id number] [employer] Attune Fb Tib Base Sz 7 Por [id number] - [id number] Implanted:Qty: 1 on 07/18/2024 by Neftaly Alcazar MD at [facility] Left: Knee [employer] [id number] 12/07/2033 [id number] / / [id number] [employer] Attune 5mm Posterior Stabilize Fix Bearing Knee 7 Insert Tibial [id number] - [id number] Implanted:Qty: 1 on 07/18/2024 by Neftaly Alcazar MD at [facility] Left: Knee [employer] [id number] 02/04/2029 [id number] / / [id number] [employer] Attune Cruciate Retain Cementless Knee Right 7 Component Femoral [id number] - [id number] Implanted:Qty: 1 on 12/12/2024 by Neftaly Alcazar MD at [facility] Right: Knee [employer] [id number] 10/06/2034 [id number] / / [id number] [employer] Insert Tibial Knee Fixed Rm Posterior Stabilized Attune 5mm Size 7 Polyethylene [id number] - [id number] Implanted:Qty: 1 on 12/12/2024 by Neftaly Alcazar MD at [facility] Right: Knee [employer] [id number] 02/05/2032 [id number] / / [id number] [employer] Attune Fb Tib Base Sz 7 Por [id number] - Sn/A - [id number] Implanted:Qty: 1 on 12/12/2024 by Neftaly Alcazar MD at [facility] [employer] [id number] 04/06/2033 [id number] / N/A / [id number] Insurance [employer] MEDICARE GOLD Advance Directives For more information, please contact: [phone] * Full Code (Latest Code Status on File) Date Activated Date Inactivated Comments 12/12/2024 10:40 AM 12/12/2024 6:34 PM * Full Code Date Activated Date Inactivated Comments 07/18/2024 12:32 PM 07/18/2024 9:31 PM Care Teams Urgent Care Physician Relationship Specialty Start Date End Date Francisco Christianson MD [facility] [address] [place] [address] PCP - General Family Practice 07/10/24 Neftaly Alcazar MD [address] [place] [address] [address] [place] [address] Surgeon Orthopedic Surgery 07/18/24
--- OUTSIDE RECORDS SUMMARY | 2025-05-29 09:16 | XMS_ITS | Referral Summary ---
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 Gender Identity Not on file Sexual Orientation Not on file Last Filed Vital Signs Vital Sign Reading Time Taken Comments Blood Pressure 125/74 01/31/2025 8:31 AM CDT Pulse 76 01/31/2025 8:31 AM CDT Temperature 36.1 C (97 F) 12/12/2024 2:00 PM TRANSIT PLANNING MANAGER Respiratory Rate 18 12/12/2024 2:00 PM TRANSIT PLANNING MANAGER Oxygen Saturation 98% 12/12/2024 2:00 PM TRANSIT PLANNING MANAGER Inhaled Oxygen Concentration - - Weight 83.5 kg (184 lb) 01/31/2025 8:31 AM CDT Height 177.8 cm (5' 10) 12/12/2024 6:22 AM TRANSIT PLANNING MANAGER Body Mass Index 26.4 12/12/2024 6:22 AM TRANSIT PLANNING MANAGER Plan of Treatment Not on file Medical Devices Implanted Type Area Handtools Repairer Device Identifier Shelf Expiration Date Model / Serial / Lot [employer] Cmpnt Fem 7 Knee Left Post Stab Cementless Attune Porocoat [id number] - [id number] Implanted:Qty: 1 on 07/18/2024 by Neftaly Alcazar MD at [facility] Left: Knee [employer] [id number] 09/06/2033 [id number] / / [id number] [employer] Attune Fb Tib Base Sz 7 Por [id number] - [id number] Implanted:Qty: 1 on 07/18/2024 by Neftaly Alcazar MD at [facility] Left: Knee [employer] [id number] 12/07/2033 [id number] / / [id number] [employer] Attune 5mm Posterior Stabilize Fix Bearing Knee 7 Insert Tibial [id number] - [id number] Implanted:Qty: 1 on 07/18/2024 by Neftaly Alcazar MD at [facility] Left: Knee [employer] [id number] 02/04/2029 [id number] / / [id number] [employer] Attune Cruciate Retain Cementless Knee Right 7 Component Femoral [id number] - [id number] Implanted:Qty: 1 on 12/12/2024 by Neftaly Alcazar MD at [facility] Right: Knee [employer] [id number] 10/06/2034 [id number] / / [id number] [employer] Insert Tibial Knee Fixed Rm Posterior Stabilized Attune 5mm Size 7 Polyethylene [id number] - [id number] Implanted:Qty: 1 on 12/12/2024 by Neftaly Alcazar MD at [facility] Right: Knee [employer] [id number] 02/05/2032 [id number] / / [id number] [employer] Attune Fb Tib Base Sz 7 Por [id number] - Sn/A - [id number] Implanted:Qty: 1 on 12/12/2024 by Neftaly Alcazar MD at [facility] [employer] [id number] 04/06/2033 [id number] / N/A / [id number] Insurance [employer] MEDICARE GOLD Advance Directives For more information, please contact: [phone] * Full Code (Latest Code Status on File) Date Activated Date Inactivated Comments 12/12/2024 10:40 AM 12/12/2024 6:34 PM * Full Code Date Activated Date Inactivated Comments 07/18/2024 12:32 PM 07/18/2024 9:31 PM Care Teams Hired Hand Relationship Specialty Start Date End Date Francisco Christianson MD [address] [place] [address] [address] [place] [address] PCP - General Family Practice 07/10/24 Neftaly Alcazar MD [address] [place] [address] [address] [place] [address] Surgeon Orthopedic Surgery 07/18/24
--- OUTSIDE RECORDS SUMMARY | 2025-05-29 09:16 | XMS_ITS | Continuity of Care Document ---
Author Organization [facility] Address [address] [place] [address] [address] [place] [address] Phone Care Team Providers Care Heavy Duty Diesel Mechanic Name Role Phone Shanks OD, Lester Unavailable Unavailable Procedures Procedure Date Eye Exam & Treatment Refraction Advance Directives Directive Yes / No Effective Date File Name No Information Encounters Encounter Description Practice Location Reason(s) For Visit Diagnoses Date Provider Providers Copied on Encounter [facility], [address] [place] [address] [address], [place], [place], [id number], [place] tel:[phone] [facility] No Information 2-201 0 Shanks OD Lester. [address] , [address], [place], [address], [place]. tel:[phone] Family History Family Member Type Diagnosis Age At Onset No Information Payers Payer name Insurance type Covered republican ID Authoriza tion(s) No Information Social History Type Description Quantity Date Captured Comments Sex Male Smoking Status No Information Chief Complaint And Reason For Visit No Information Reason For Referral Reason For Referral No Information History Of Present Illness Encounter Date Complaint History Of Prese nt Illness No Information Functional Status Date Functional Assessmen t No Information Instructions Date Instruction Additional Infor mation No Information Assessments Type Assessment Date No Information Patient Care Teams Name Effective Dates (start - stop) Status Members No Information
[2025-05-29 15:33] LABS: Alanine Aminotransferase 12 U/L (6-50); Albumin Level 4.6 g/dL (3.5-5.1); Alkaline Phosphatase 69 U/L (38-126); Anion Gap 8 mmol/L (4-12); Aspartate Amino Transferase 27 U/L (17-59); Bilirubin,Total 0.7 mg/dL (0.2-1.3); Blood Urea Nitrogen 18 mg/dL (9-20); Calcium 10.1 mg/dL (8.4-10.2); Carbon Dioxide 25 mmol/L (22-30); Chloride 95 mmol/L (98-107); Estimated Glomerular Filt Rate > 60; Glucose 84 mg/dL (65-110); Potassium 4.3 mmol/L (3.4-5.0); Sodium 128 mmol/L (137-145); Total Protein 7.7 g/dL (6.3-8.2)
== END 2025-05-29 09:03 | disposition home or self-care (01) ==
LOC: ANHGOSHLAB 09:02
PROVIDERS: PCP Family Medicine; Visit Provider Family Medicine
DX: I10 Essential (primary) hypertension (principal)
CPT/HCPCS: 36415; 80053